=== PATIENT | male | born 1965 | race Caucasian/White ===

== ENCOUNTER 2018-08-22 18:20 | Inpatient (IN) | payer OTHER ==
[~2018-08-22] VITALS: Ht 177.8 cm; Wt 150.8 kg
[2018-08-22 18:21] VITALS: BP 159/91
[2018-08-22 18:34] LABS: ABSOLUTE NEUTROPHILS 6.3 thou/uL (1.4-8.2); BASOPHILS 0.7 % (0.0-2.0); EOSINOPHILS 1.4 % (0.0-3.0); HEMATOCRIT 43.6 % (42.0-52.0); HEMOGLOBIN 15.2 gm/dL (14.0-18.0); LYMPHOCYTES 29.5 % (24.0-44.0); MCH 29.9 pg (26.0-34.0); MCHC 34.8 g/dL (28.0-37.0); MCV 85.8 fL (80.0-100.0); MONOCYTES 3.9 % (1.0-8.0); PLATELET COUNT 341 thou/uL (150-400); POLYS 64.5 % (36.0-66.0); RBC 5.08 mil/uL (4.50-6.00); RDW 14.5 % (10.5-14.5); WBC 9.7 thou/uL (4.0-11.0)
[2018-08-22 18:37] LABS: ANION GAP 19 mmol/L (7-16); BUN 21 mg/dL (7-18); CALCIUM 10.3 mg/dL (8.5-10.1); CHLORIDE 102 mmol/L (98-107); CO2 21 mmol/L (21-32); CREATININE 2.1 mg/dL (0.7-1.3); GLUCOSE 184 mg/dL (74-106); SODIUM 142 mmol/L (136-145)
[2018-08-22 18:47] LABS: DIRECT BILIRUBIN < 0.1 mg/dL (<0.1-0.3); SGOT 50 U/L (15-37); SGPT 39 U/L (30-65); TOTAL BILIRUBIN 0.4 mg/dL (<0.1-1.0); TOTAL PROTEIN 8.1 g/dL (6.4-8.2); TROPONIN-I <0.06 ng/mL (<0.06)
[2018-08-22 18:48] LABS: APTT 25.3 Seconds (24.5-32.8)
[2018-08-22 20:59] VITALS: BP 140/79
[2018-08-22 21:32] VITALS: BP 147/79
[2018-08-22 22:13] VITALS: BP 146/67
--- NOTE | 2018-08-22 23:57 | NUR ---
PT ADMIT FROM ED WITH CHEST PAIN AND ELEVATED TROPONIN.A/OX4.ARRIVED TO UNIT VIA CART.PT WAS ABLE TO AMBULATE FROM THE DOOR TO BED WITH STEADY GAIT.PT ADMITTED ON FALLING AT WORK WITH THE EPISODE OF CHEST PAIN.VSS.PT EDUCATED ON HEART MONITORS MONITORING AND NEED TO CHECK ON THEM IN NEED BE TO MAKE SURE OUR PATIENTS ARE SAFE.PT VOICED UNDERSTANDING AND INAGREEMENT WITH THE PROCEDURE DEMONSTRATED VIA SIGNING PT'S SAFETY PAPERWORK,COPY GIVEN TO PT .DENIES ANY CONCERNS.POC REVIEWED WITH THE POC,INAGREEMENT WITH POC AND TX.ASSESSMENT COMPLETED DOCUMENTED.MEDS ACKNOWLEDGED.PAIN MEDS ADN ZOFRAN GIVEN D/T PT C/O CHEST TIGHTNESS/PRESSURE WITH NAUSEA.WILL CONT TO MONITOR PER POC.
[2018-08-23] VITALS (11 sets, daily range): BP systolic 126–176; BP diastolic 73–88
[2018-08-23 03:55] LABS: ANION GAP 9 mmol/L (7-16); BUN 22 mg/dL (7-18); CALCIUM 8.5 mg/dL (8.5-10.1); CHLORIDE 103 mmol/L (98-107); CHOLESTEROL 215 mg/dL (<200); CO2 27 mmol/L (21-32); CREATININE 1.3 mg/dL (0.7-1.3); GLUCOSE 102 mg/dL (74-106); HDL CHOLESTEROL 31 mg/dL (>40); LDL CHOLESTEROL 154 mg/dL (<100); POTASSIUM 3.3 mmol/L (3.5-5.1); SODIUM 139 mmol/L (136-145); TC:HDL 6.9 Ratio (Not establshd); TRIGLYCERIDE 154 mg/dL (<150); TROPONIN-I 0.06 ng/mL (<0.06); VLDL 31 mg/dL (<40)
[2018-08-23 03:59] LABS: SERUM ASSESSMENT Slight Lipemia
--- NOTE | 2018-08-23 09:36 | EKG ---
[address] [place] [address] ELECTROCARDIOGRAM REPORT Name: FANNIE ANTHONY Room #: 213-P ADM IN M.R.#: [id number] ������������������ Admission: 08/22/18 ������������������ Attend Phys: Eldon Rivera MD Discharge: ������������������ Date of : 69 Report #: [id number] ����������������������������������������������������������������� [id number] THIS REPORT FOR: //name// [facility] ED Test Date: 2018-08-22 Test Time: 18:25:37 Pat Name: FANNIE ANTHONY Department: Room: 213 Gender: M Anesthetic Assistant: CELESTINO : 1965 Requested By: Yvonne Patterson Order Number: [id number] MD: Walker Oliveira Measurements Intervals [place] Rate: 108 P: 32 MS: 176 QRS: -9 QRSD: 102 T: 32 QT: 353 QTc: 473 Interpretive Statements Sinus tachycardia Ventricular premature complex Nonspecific ST segment abnormalities No previous ECG available for comparison Electronically Signed On 08-23-2018 9:36:42 CDT by Walker Oliveira [email or web address] ��������������������������������������������� <ELECTRONICALLY SIGNED> ���������������������������������������� By: Walker Oliveira MD ��������������������������������������������� 08/23/18 0936 1825 1825 Walker Oliveira MD /RONAL
--- NOTE | 2018-08-23 09:39 | EKG ---
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 : 1965 Requested By: Dipti Nunes Order Number: [id number] MD: Walker Oliveira Measurements Intervals [place] Rate: 67 P: 33 WV: 171 QRS: -11 QRSD: 104 T: 41 QT: 447 QTc: 472 Interpretive Statements Sinus rhythm No previous ECG available for comparison Electronically Signed On 08-23-2018 9:39:19 CDT by Walker Oliveira [email or web address] ��������������������������������������������� <ELECTRONICALLY SIGNED> ���������������������������������������� By: Walker Oliveira MD ��������������������������������������������� 08/23/18 0939 0730 0730 Walker Oliveira MD /EPI
--- NOTE | 2018-08-23 12:19 | 2DMMODE ---
[facility] [address] [employer] [address] 2 D/M-MODE ECHOCARDIOGRAM Name: GABRIELLEFANNIE Bia Room #: 213-P [facility] IN ..#: [id number] ������������� Admission: 08/22/18 ������������� Attend Phys: Eldon Rivera MD Discharge: ��� ������������� ��� Date of : 69 Date of Service: 08/23/18 1219 �� Report #: [id number] �������� ��������������������������������������������[id number] THIS REPORT FOR: //name// APPROVED REPORT Study performed: 08/23/2018 10:13:00 EXAM: Comprehensive 2D, Doppler, and color-flow Echocardiogram Patient Location: Bedside Room #: 213 Status: routine BSA: 2.57 HR: 70 bpm BP: 168/88 mmHg Rhythm: NSR Other Information Study Quality: Adequate Indications CAD Elevated Troponin Chest Pain Hypertension/HDD Morbid Obesity 2D Dimensions IVC: 25.00 mm Volumes Left Atrial Volume (Systole) Single Plane 4CH: 91.61 mL Single Plane 2CH: 80.48 mL LA ESV Index: 36.00 mL/m2 Aortic Valve AoV Peak Amando.: 1.70 m/s AO Peak Gr.: 11.59 mmHg LVOT Max P.70 mmHg LVOT Max V: 1.29 m/s Mitral Valve E/A Ratio: 1.1 MV Decel. Time: 265.66 ms MV E Max Amando.: 0.98 m/s MV A Amando.: 0.90 m/s MV PHT: 77.04 ms [facility] [address] [place] [address] 2 D/M-MODE ECHOCARDIOGRAM Name: FANNIE ANTHONY Room #: 213-P ADM IN M.R.#: [id number] ������������� Admission: 08/22/18 ������������� Attend Phys: Eldon Rivera MD Discharge: ��� ������������� ��� Date of : 69 Date of Service: 08/23/18 1219 �� Report #: [id number] �������� ��������������������������������������������[id number] IVRT: 124.57 ms Pulmonary Valve PV Peak Amando.: 0.96 m/s PV Peak Gr.: 3.66 mmHg Pulmonary Vein P Vein S: 0.71 m/s P Vein A: 0.25 m/s P Vein D: 0.50 m/s P Vein A Dur.: 133.8 msec P Vein S/D Ratio: 1.42 Left Ventricle The left ventricle is normal size. There is normal LV segmental wall motion. Borderline concentric left ventricular hypertrophy. The left ventricular systolic function is normal. The left ventricular ejection fraction is within the normal range. LVEF is 60-65%. Grade II - pseudonormal filling dynamics. Right Ventricle The right ventricle is normal size. The right ventricular systolic function is normal. Atria Left atrium is dilated. The right atrium size is normal. Aortic Valve The aortic valve is normal in structure. No aortic regurgitation is present. There is no aortic valvular stenosis. Mitral Valve The mitral valve is normal in structure. There is no mitral valve regurgitation noted. No evidence of mitral valve stenosis. Tricuspid Valve The tricuspid valve is normal in structure. There is no tricuspid valve regurgitation noted. Pulmonic Valve The pulmonary valve is normal in structure. There is no pulmonic valvular regurgitation. Great Vessels The aortic root is normal in size. IVC is dilated and collapses >50% with inspiration. Pericardium There is no pericardial effusion. [facility] [address] [place] [address] 2 D/M-MODE ECHOCARDIOGRAM Name: FANNIE ANTHONY Room #: 213-P [facility] IN ..#: [id number] ������������� Admission: 08/22/18 ������������� Attend Phys: Eldon Rivera MD Discharge: ��� ������������� ��� Date of : 69 Date of Service: 08/23/18 1219 �� Report #: [id number] �������� ��������������������������������������������[id number] <Conclusion> The left ventricle is normal size. LVEF is 60-65%. Left atrium is dilated. The aortic valve is normal in structure. The mitral valve is normal in structure. The tricuspid valve is normal in structure. The pulmonary valve is normal in structure. There is no pericardial effusion. ��������������������������������������������� <ELECTRONICALLY SIGNED> ���������������������������������������� By: Zenon Santos MD ��������������������������������������������� 08/23/18 1219 121 1219 Zenon Santos MD /INF
[2018-08-23 15:10] LABS: GLYCOHEMOGLOBIN (HGB A1C) 5.4 % (4.8-5.6)
--- NOTE | 2018-08-23 19:26 | NUR ---
1815 - PT TO ROOM 247 PER MOVER STAFF - REPORT RECEIVED FROM ALLY KAPADIA - PT A/O X4 - DENIES CP - VSS - RIGHT GROIN /C ARTERIAL LINE DRY/INTACT/SOFT - PT INSTRUCTED ON NEED TO KEEP LEG STRAIGHT - COMPLAINS OF HEADACHE DR. CHANG AT BEDSIDE AND STATES TO WEAN OFF NITRO DRIP - ASSESSMENT COMPLETE - REPORT GIVEN TO ALLY YANES AT END OF SHIFT
--- NOTE | 2018-08-23 23:51 | NUR ---
ASSUMED CARE OF PT AT 1900. PT ALERT AND ORIENTED X4. SR ON THE MONITOR. RIGHT GROIN ARTERIAL SHEATH IN PLACE. ANGIOMAX GTT ENDED AT 1930. ARTERIAL SHEATH PULLED AT 2150. PRESSURE HELD FOR 25 MIN. HEMOSTASIS ACHIEVED AT 2215. GAUZE AND TRASPARENT DRESSING PLACED. PT SR ON THE MONITOR. BP ELEVATED. PM BP MEDS GIVEN WITH IMPROVEMENT. PT C/O VELEZ AND LEFT HIP PAIN. WILL CONTINUE TO MONITOR PT.
[2018-08-24] VITALS (19 sets, daily range): BP systolic 112–165; BP diastolic 56–93
[2018-08-24 06:54] LABS: HEMATOCRIT 35.3 % (42.0-52.0); MCH 29.6 pg (26.0-34.0); MCHC 33.9 g/dL (28.0-37.0); MCV 87.4 fL (80.0-100.0); RBC 4.04 mil/uL (4.50-6.00); RDW 14.6 % (10.5-14.5)
[2018-08-24 06:56] LABS: CALCIUM 8.2 mg/dL (8.5-10.1); POTASSIUM 3.8 mmol/L (3.5-5.1)
--- NOTE | 2018-08-24 09:49 | NUR ---
Assess due to high BMI 47.3=extreme class III obesity. Hx CAD and admitted for chest pain, required DANELLE. Tolerating diet well. See RD education note for diet education. Low nutrition risk
--- NOTE | 2018-08-24 13:39 | NUR ---
INITIAL ASSESSMENT: SW reviewed chart and spoke with nursing and attending physician. Pt was admitted from home due to chest pain. Pt is s/p cath and is progressing towards goals for discharge. Discharge home is anticipated for tomorrow. SW met with pt at bedside. Introduced role of SW. Pt is alert/orientated x 4. Pt sitting up in chair during time of SW visit. Pt reports he lives at home alone. Prior to admission, pt was independent with ADLs. Pt is employed and was at work when chest pain started. No hx of services or SNF/Rehab placement. Pt does not have a PCP, and states he will follow up with the tandem mill sticker here at [facility] after discharge. Pt will have transportation home tomorrow when discharged. No SW discharge needs identified at this time, but is available to assist should needs arise.
--- NOTE | 2018-08-24 18:04 | NUR ---
assumed care of pt at 0700, pt is a GCS 15, c/o pain mostly to left hip but denies chest pain. vss, SR/SB on the monitor, pt has been afibrile. orders recieved to transferr pt out of ICU. report called to accepting nurse. family notified.
--- NOTE | 2018-08-24 18:22 | NUR ---
PT TRANSFERED TO THE UNIT FROM THE ICU - ORIENTED TO ROOM AND BEDSPACE - RAHEL DIET AND FLUIDS. NO CO'S OF NAUSEA. PT WITH GENERALIZED EDEMA - 2+ IN HANDS AND FEET. SR ON THE MONITOR. ALET AND ORIENTED. NO CO'S AT THE PRESENT TIME.
--- NOTE | 2018-08-24 21:42 | CATHLAB ---
[facility] [address] [place] [address] INVASIVE PROCEDURE REPORT Name: FANNIE ANTHONY Room #: [facility] ..#: [id number] ������������� Admission: 08/22/18 ������������� Attend Phys: Eldon Rivera MD Discharge: ��� ������������� ��� Date of : 69 Date of Service: 08/24/182141 �� Report #: [id number] �������� ��������������������������������������������[id number] THIS REPORT FOR: //name// APPROVED REPORT Study performed: 08/23/2018 16:01:33 Patient Details Patient Status: In-Patient Room #: The patient is a 52 year-old male Event Personnel Zenon Santos Eligibility Services Representative, Latia Davies RN, Jc Chacon Monitor, Cornel Greco RTR RikkiubAilyn Wes senior microsoft net developer Performed Art Access - R femoral artery* Left Heart Cath w/or w/o Coronaries [id number] [facility] DANELLE Place w/wo Plasty Single RCA [id number] 33146 Initial Mod Sed Same Phys/QHP Gr5y 648503 71839 Mod Sed Same Phys/QHP Ea 711486, supervision of conscious sedation Indication Non-STEMI (>12 hrs to = 24 hrs), Chest pain Procedure Narrative The Right Groin^ was infiltrated with 1% Lidocaine subcutaneous anesthesia. A PINNACLE 4FR Sheath #[id number] sheath was inserted into the RFA^. Coronary angiography was performed using coronary diagnostic catheters. The right coronary system was accessed and visualized with a JR4 catheter. The left coronary system was accessed and visualized with a JL4 catheter. The left ventricle was accessed and visualized with a ANGLE PIG catheter. SHEATH WAS SUTTURED INTO RT GROIN. Intraoperative Conscious Sedation Sedation start time: 1614 Case end Time: 1743 Versed 2 mg MORPHINE 4MG Fluoro Time: 20.41 minutes Dose: DAP 11065.00 cGycm2 4452 mGy Contrast Type and Amount: Omnipaque 250 ml [facility] [place] [address] INVASIVE PROCEDURE REPORT Name: FANNIE ANTHONY Room #: 201[facility] ..#: [id number] ������������� Admission: 08/22/18 ������������� Attend Phys: Eldon Rivera MD Discharge: ��� ������������� ��� Date of : 69 Date of Service: 08/24/182141 �� Report #: [id number] �������� ��������������������������������������������[id number] Coronary Angiography The patient's coronary anatomy is right dominant. Diagnostic Cath Left Main large caliber of normal origin bifurcates into LAD and LCX mild nonobstructive lesion noted. LAD small caliber type II vessel with eccentric 40% lesion proximally. it then continues in the anterior interventricular sulcus where ther is a 30-40% lesion in the distal third Diagonal 1 Small caliber vessel with luminal irregularities but no high-grade lesions present Circumflex Large-caliber vessel is resting very early first marginal branch. This first marginal branch is moderate to large in caliber and has a eccentric 75% lesion in its midportion. Then continues along the lateral aspect of the heart the circumflex continues on giving rise to a small posterior wall branches without significant high-grade lesions OM1 Rectal large-caliber vessel coursing on the lateral last of the left ventricle with a St. 5% eccentric lesion in its midportion. Then continues and terminates as a bifurcating vessel without high-grade lesion but the presence of luminal irregularities are noted. Right Coronary Large caliber dominant vessel which is ectatic in its proximal portion of the proximal segment. It then has a high-grade eccentric lesion of greater than 90%. The vessel then continues as a angulation as it courses in the anterior interventricular sulcus giving rise to small RV marginal branch for the vessel continues posteriorly where it gives rise to posterior descending artery at the crux of the heart and posterior lateral branch all of which are at least moderate in size R PDA small to moderate caliber long in length with luminal irregularities noted reaching the apex of the heart. RPLV Small to moderate caliber vessel with luminal irregularities noted coursing towards the apex and the posterolateral aspect of the left ventricle Left Ventriculography Left Ventriculography was not performed. Hemodynamics The aortic pressure is 167/102 mmHg with a mean of 134 mmHg. PCI Technique The right coronary artery lesion was noted to be the culprit more than likely since there was some haziness at the stenotic region. The angulation was not best amenable to percutaneous revascularization. The patient did not wish to undergo aortocoronary bypass grafting. In [facility] [address] [place] [address] INVASIVE PROCEDURE REPORT Name: FANNIE ANTHONY Room #: 201-P ADM IN M.R.#: [id number] ������������� Admission: 08/22/18 ������������� Attend Phys: Eldon Rivera MD Discharge: ��� ������������� ��� Date of : 69 Date of Service: 08/24/18 2142 �� Report #: [id number] �������� ��������������������������������������������[id number] view of this we decided to proceed with attempted PCI. Prior to the initiation I contacted thoracic surgery to have them in-house available in case of an adverse event. A standard Miriam right 4 curved guiding catheter was engaged and right coronary ostium. A 0.014 wire was then advanced distally without difficulty and a 4.0 mm x 12-lead meter balloon was positioned and inflated to nominal pressures. The 4 mm balloon seen significantly undersize. The balloon was removed and the lesion was improved in diameter but noticeable supposedly had more haziness at the stenotic region. symptoms worsened and review of the right coronary demonstrated the development of a spiral dissection plane. Immediately a 5 mm x 12 mm DANELLE stent was positioned and deployed to 16 tyler at the previous the dilated site with the beginning of the spiral dissection. This did not cover the entire dissection plane and a second 5 mm x 15 mm DANELLE stent was positioned proximally and deployed at 16 tyler. This completely cover the dissection plane and flow was reestablished. symptoms improved although the distal portion of the stent did not seem to be fully deployed to appropriate sizing. A 5 mm noncompliant balloon was then advanced and positioned distally and inflated to 5.5 mm diameter. The stent looked much improved with apparently well deployed. Nicardipine 200 �g aliquots �4 were utilized to improve distal flow. Some sluggish flow was noted in the PDA. The patient remained electrically stable throughout the entire procedure. Flow improved with brisk flow being reestablished and the dissection plane completely covered without evidence of dissection. The vessel was observed for several minutes without any development of new dissections or sluggish flow. Patient's symptoms subsided and were much improved. She states her son in place. Effient was given. IV nitroglycerin was initiated for elevated blood pressure and chest discomfort. Patient was transported to the ICU for further care and monitoring. PCI Technique Lesion Percutaneous coronary intervention was performed on the mid right coronary artery. A LAUNCHER 6FR JR 4 #[id number] Guide Catheter was used to engage the RCA ostium. A Luge Wire .014 x 182CM #[id number] Interventional Guidewire was used to cross the lesion. BALLOON DILATION A Balloon catheter Sprinter OTW 4.0 x 12 #[id number] was inserted and inflated up to 3atm for 6seconds. Additional Inflation: 3atm for 20seconds. Additional Inflation: 4atm for 28seconds. 8 TYLER FOR 45 SECS. STENT DEPLOYMENT A drug-eluting stent RESOLUTE KALIA RX 5.0 X 15 #[id number] was inserted [facility] [place] [address] INVASIVE PROCEDURE REPORT Name: FANNIE ANTHONY Room #: 201[facility] ..#: [id number] ������������� Admission: 08/22/18 ������������� Attend Phys: Eldon Rivera MD Discharge: ��� ������������� ��� Date of : 69 Date of Service: 08/24/18 2142 �� Report #: [id number] �������� ��������������������������������������������[id number] and inflated up to 14atm for 10seconds. A RESOLUTE KALIA RX 5X18 PLACED IN THE RCA DEPLOYED AT 14ATM FOR 8 SECS. POST STENT DEPLOYMENT BALLOON DILATION A Balloon catheter Euphora NC RX 5.0 x 15 #[id number] was inserted and inflated up to 12atm for 16seconds. Additional Inflation: 20atm for 17seconds. Conclusion 1. Coronary disease, severe, two-vessel 2. Abnormal hemodynamics with elevated liver ventricular end-diastolic pressures 3. PCI of the proximal right coronary artery complicated by spiral dissection successfully treated with 5.0 x 12 and 5.0 x 15 mm DANELLE stents deployed to 16-18 tyler Recommendations Cardiac Risk Reduction Program Weight Loss Reduction Program Medications Administered Prasugrel Cardiac Rehabilitation Referral ��������������������������������������������� <ELECTRONICALLY SIGNED> ���������������������������������������� By: Zenon Santos MD ��������������������������������������������� 08/24/182141 41 41 Zenon Santos MD /INF
[2018-08-25 00:30] VITALS: BP 129/72
[2018-08-25 04:00] VITALS: BP 152/88
--- NOTE | 2018-08-25 05:30 | NUR ---
ASSUME CARE 1900. PT/VITALS STABLE. INTERMITTENT LEFT LEG PAIN. MORPHINE FOR RELIEF. UP AD RAMYA TO BATHROOM. PT LIMPING DUE TO LEFT LEG PAIN. ASSESSMENT CHARTED. PROGRESSING WELL WITH POC. SR NOTED ON MONITOR. RIGHT GROIN SITE INTACT WITH NO SWELLING OR HEMATOMA NOTED. PLAN IS A POSSIBLE DISCHARGE WITHIN 1-2 DAYS. WILL CONTINUE TO MONITOR AND FOLLOW WITH POC
[2018-08-25 07:34] VITALS: BP 154/83
[2018-08-25] MEDS ORDERED: CRESTOR20 MG PO (08:20)
[2018-08-25] MEDS ORDERED: ALTACE5 MG PO (08:20)
[2018-08-25] MEDS ORDERED: NITROGLYCERIN0.4 MG SUBLING (08:20)
[2018-08-25] MEDS ORDERED: EFFIENT10 MG PO (08:20)
[2018-08-25] MEDS ORDERED: ASPIRIN325 PO (08:20)
[2018-08-25] MEDS ORDERED: METOPROLOL SUCC50 MG PO (08:20)
[2018-08-25 10:28] VITALS: BP 154/83
--- NOTE | 2018-08-25 10:42 | NUR ---
BEING DISCHARGED TODAY. DISCHARGE INSTRUCTIONS, PRESCRIPTIONS GIVEN. WILL CONTINUE TO FOLLOW.
[2018-08-25 10:44] VITALS: BP 154/83
== END 2018-08-25 14:16 | disposition home or self-care (01) | DRG 247 ==
LOC: ER 18:20 → EROBS 20:43 → 2N 20:43 → ICU 08-23 18:30 → 2N 08-24 17:43 → ENTRNSPT 08-25 14:07 → EDTRNSPTSTS 08-25 14:09 → 2N 08-25 14:16
PROVIDERS: Emergency Medicine; Nurse Practitioner Family; ADMIT Hospitalist
PROC: 4A023N7 Measurement of Cardiac Sampling and Pressure, Left Heart, Percutaneous Approach (ICD-10-PCS; principal; 2018-08-23)
PROC: 027035Z Dilation of Coronary Artery, One Artery with Two Drug-eluting Intraluminal Devices, Percutaneous Approach (ICD-10-PCS; principal; 2018-08-23)
PROC: B2111ZZ Fluoroscopy of Multiple Coronary Arteries using Low Osmolar Contrast (ICD-10-PCS; principal; 2018-08-23)
DX: I21.4 Non-ST elevation (NSTEMI) myocardial infarction (principal); Z68.42 Body mass index [BMI] 45.0-49.9, adult; N17.9 Acute kidney failure, unspecified; I25.10 Atherosclerotic heart disease of native coronary artery without angina pectoris; E78.5 Hyperlipidemia, unspecified; E66.01 Morbid (severe) obesity due to excess calories; E87.6 Hypokalemia; M16.12 Unilateral primary osteoarthritis, left hip; Z98.61 Coronary angioplasty status; I25.2 Old myocardial infarction; Z87.828 Personal history of other (healed) physical injury and trauma; Z87.81 Personal history of (healed) traumatic fracture; Z79.899 Other long term (current) drug therapy; Z88.2 Allergy status to sulfonamides; Z82.49 Family history of ischemic heart disease and other diseases of the circulatory system
CPT/HCPCS: 10078; 10081

== ENCOUNTER 2018-11-20 20:12 | Inpatient (IN) | payer OTHER ==
[~2018-11-20] VITALS: Ht 177.8 cm; Wt 145.6 kg
--- NOTE | ~2018-11-20 | D ---
[facility] [place] [address] DISCHARGE SUMMARY Name: FANNIE ANTHONY Room #: 200-I ADM IN M.R.#: [id number] Admission: 11/20/18 Attend Phys: Francisco Ching MD Discharge: Date of : 69 Report #: [id number] THIS REPORT FOR: //name// CC: JERRY physician/PCP Francisco Ching DATE OF SERVICE: 11/23/2018 DISCHARGE MEDICATIONS: Home meds with the following changes: isosorbide mononitrate 120 mg q.a.m., losartan 25 mg p.o. daily at 6:00 p.m. Home medications have been prasugrel 10 mg daily, sublingual nitroglycerin p.r.n., metoprolol succinate 50 mg daily, aspirin 325 daily, and simvastatin 20 mg daily. FOLLOWUP: Dr. aSntos in 2 weeks. DISCHARGE DIET: [place] [employer] step 1 diet, salt restricted. ACTIVITY: Return to regular home activity with checking blood pressures and calling if greater than 130 systolic or 80 diastolic. BRIEF CLINICAL HISTORY: See history and physical in chart. HOSPITAL COURSE: The patient was admitted to the hospital, ruled out for myocardial infarction, but underwent cardiac catheterization demonstrated a patent stenting. He had a moderate left circumflex lesion that underwent IFR, which was not significant. He had a subtotal small marginal branch with slow filling and less than 0.5 mm in diameter, which was thought to be the culprit. His medications are optimized. He is allowed to ambulate and he is discharged to home in stable condition to follow up with the previously stated discharge instructions and medications. By: 1216 1329 Zenon Santos MD /nt
[~2018-11-20 20:12] MED LIST: ALTACE5 MG PO; ASPIRIN325 PO; CRESTOR20 MG PO; EFFIENT10 MG PO; METOPROLOL SUCC50 MG PO; NITROGLYCERIN0.4 MG SUBLING
[2018-11-20 21:00] VITALS: BP 143/83
[2018-11-20] MEDS ORDERED: IMDUR 60 MG TAB60 M1 PO (21:04)
[2018-11-20] MEDS ORDERED: [UNRECOGNIZED DRUG - REMARK] PO (21:09)
[2018-11-20] MEDS ORDERED: [UNRECOGNIZED DRUG - REMARK] PO (21:10)
[2018-11-20] MEDS ORDERED: CRESTOR20 MG PO (21:16)
[2018-11-20 23:45] LABS: HEMATOCRIT 39.4 % (42.0-52.0); MCH 28.9 pg (26.0-34.0); MCHC 33.1 g/dL (28.0-37.0); MCV 87.4 fL (80.0-100.0); RBC 4.51 mil/uL (4.50-6.00); RDW 14.6 % (10.5-14.5); WBC 8.6 thou/uL (4.0-11.0)
[2018-11-20 23:54] LABS: ANION GAP 10 mmol/L (7-16); BUN 19 mg/dL (7-18); CALCIUM 9.4 mg/dL (8.5-10.1); CHLORIDE 105 mmol/L (98-107); CO2 25 mmol/L (21-32); CREATININE 1.3 mg/dL (0.7-1.3); GLUCOSE 114 mg/dL (74-106); POTASSIUM 3.8 mmol/L (3.5-5.1); SODIUM 140 mmol/L (136-145)
[2018-11-21] VITALS (8 sets, daily range): BP systolic 119–140; BP diastolic 72–92
[2018-11-21 00:05] LABS: ALBUMIN 3.5 g/dL (3.4-5.0); SGOT 15 U/L (15-37); SGPT 25 U/L (30-65); TOTAL BILIRUBIN 0.2 mg/dL (<0.1-1.0); TOTAL PROTEIN 7.2 g/dL (6.4-8.2); TROPONIN-I <0.06 ng/mL (<0.06)
[2018-11-21 06:22] LABS: HEMATOCRIT 37.7 % (42.0-52.0); HEMOGLOBIN 12.8 gm/dL (14.0-18.0); MCH 29.7 pg (26.0-34.0); MCV 87.5 fL (80.0-100.0); RBC 4.31 mil/uL (4.50-6.00); RDW 14.7 % (10.5-14.5); WBC 7.7 thou/uL (4.0-11.0)
[2018-11-21 06:57] LABS: ANION GAP 7 mmol/L (7-16); BUN 19 mg/dL (7-18); CALCIUM 8.6 mg/dL (8.5-10.1); CHLORIDE 106 mmol/L (98-107); CO2 24 mmol/L (21-32); CREATININE 1.2 mg/dL (0.7-1.3); GLUCOSE 119 mg/dL (74-106); POTASSIUM 3.6 mmol/L (3.5-5.1); SODIUM 137 mmol/L (136-145); TROPONIN-I <0.06 ng/mL (<0.06)
[2018-11-21 07:58] LABS: URINE BILIRUBIN NEGATIVE (Negative); URINE BLOOD NEGATIVE (Negative); URINE CLARITY CLEAR; URINE COLOR YELLOW; URINE GLUCOSE-RANDOM* NEGATIVE (Negative); URINE KETONES NEGATIVE (Negative); URINE LEUKOCYTES-REFLEX NEGATIVE (Negative); URINE NITRITE-REFLEX NEGATIVE (Negative); URINE PROTEIN (DIPSTICK) NEGATIVE (Negative); URINE SPECIFIC GRAVITY 1.015 (1.005-1.035); URINE UROBILINOGEN 0.2 E.U./dl (0.2-1.0)
--- NOTE | 2018-11-21 17:26 | EKG ---
[place] [address] [address] [facility] [place] [address] ELECTROCARDIOGRAM REPORT Name: FANNIE ANTHONY Room #: 200-I ADM IN M.R.#: [id number] Admission: 11/20/18 Attend Phys: Francisco Ching MD Discharge: Date of : 69 Report #: [id number] THIS REPORT FOR: //name// [facility] Test Date: 2018-11-20 Test Time: 23:49:43 Pat Name: FANNIE ANTHONY Department: Room: 200 I Gender: M Certified Teacher Assistant: marcie coelho rn : 1965 Requested By: Walker Oliveira Order Number: [id number] MD: Gal Nelson Measurements Intervals [place] Rate: 58 P: 37 UT: 182 QRS: 14 QRSD: 101 T: 32 QT: 460 QTc: 452 Interpretive Statements Sinus bradycardia Otherwise normal tracing Compared to ECG 08/23/2018 07:30:20 No significant changes Electronically Signed On 11-21-2018 17:26:03 CDT by Gal Nelson [email or web address] <ELECTRONICALLY SIGNED> By: Gal Nelson MD, [facility] 11/21/18 1726 D: 08/2348 48 Gal Nelson MD, FACC /EPI
--- NOTE | 2018-11-21 17:29 | EKG ---
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
[2018-11-22 04:00] VITALS: BP 122/73
[2018-11-22 06:06] LABS: HEMATOCRIT 35.2 % (42.0-52.0); HEMOGLOBIN 11.8 gm/dL (14.0-18.0); MCH 29.5 pg (26.0-34.0); MCHC 33.5 g/dL (28.0-37.0); MCV 88.1 fL (80.0-100.0); RDW 14.7 % (10.5-14.5); WBC 6.7 thou/uL (4.0-11.0)
[2018-11-22 07:42] VITALS: BP 132/81
--- NOTE | 2018-11-22 10:14 | 2DMMODE ---
[facility] [address] [address] 2 D/M-MODE ECHOCARDIOGRAM Name: FANNIE ANTHONY Room #: 200-I ADM IN [facility]#: [id number] Admission: 11/20/18 Attend Phys: Francisco Ching, Discharge: Date of : 69 Date of Service: 11/22/18 1014 Report #: [id number] THIS REPORT FOR: //name// APPROVED REPORT Study performed: 11/22/2018 09:45:27 EXAM: Comprehensive 2D, Doppler, and color-flow Echocardiogram Patient Location: In-Patient Room #: 200 Status: routine BSA: 2.28 HR: 62 bpm Rhythm: NSR Other Information Study Quality: Fair Indications Assess Ejection Fraction Left Ventricle The left ventricle is normal size. There is normal left ventricular wall thickness. The left ventricular systolic function is normal. The left ventricular ejection fraction is within the normal range. LVEF is 55-60%. Right Ventricle The right ventricle is normal size. Atria The left atrium size is normal. The right atrium size is normal. Aortic Valve The aortic valve is normal in structure. No aortic regurgitation is present. There is no aortic valvular stenosis. Mitral Valve The mitral valve is normal in structure. Trace mitral regurgitation. No evidence of mitral valve stenosis. Tricuspid Valve The tricuspid valve is normal in structure. Mild tricuspid [facility] [address] [place] [address] 2 D/M-MODE ECHOCARDIOGRAM Name: FANNIE ANTHONY Room #: 200-I ADM IN [facility].R.#: [id number] Admission: 11/20/18 Attend Phys: Francisco Ching, Discharge: Date of : 69 Date of Service: 11/22/18 1014 Report #: [id number] regurgitation. Pulmonic Valve Pulmonic valve is not well visualized. Great Vessels IVC is normal in size and collapses >50% with inspiration. Pericardium There is no pericardial effusion. <Conclusion> The left ventricle is normal size. LVEF is 55-60%. The aortic valve is normal in structure. The mitral valve is normal in structure. Trace mitral regurgitation. The tricuspid valve is normal in structure. Mild tricuspid regurgitation. Pulmonic valve is not well visualized. There is no pericardial effusion. <ELECTRONICALLY SIGNED> By: Zenon Santos MD 11/22/18 1014 1014 1014 Zenon Santos MD /INF
[2018-11-22 12:27] VITALS: BP 143/74
[2018-11-22 15:18] VITALS: BP 137/86
[2018-11-22 19:28] VITALS: BP 138/87
[2018-11-23 04:51] VITALS: BP 122/65
[2018-11-23] MEDS ORDERED: COZAAR 25 MG TA25 M1 PO (09:03)
[2018-11-23] MEDS ORDERED: IMDUR 60 MG TAB60 M1 PO (09:03)
[2018-11-23 09:13] VITALS: BP 152/96
[2018-11-23 10:16] LABS: CALCIUM 8.5 mg/dL (8.5-10.1); CREATININE 1.1 mg/dL (0.7-1.3); POTASSIUM 3.7 mmol/L (3.5-5.1)
[2018-11-23 12:25] VITALS: BP 132/82
[2018-11-23 13:19] VITALS: BP 132/82
--- NOTE | 2018-11-23 14:58 | CATHLAB ---
[facility] [employer] [place] [address] INVASIVE PROCEDURE REPORT Name: FANNIE ANTHONY Room #: 200-I [facility] IN [facility]#: [id number] Admission: 11/20/18 Attend Phys: Francisco Ching, Discharge: 11/23/18 Date of : 69 Date of Service: 11/23/18 1457 Report #: [id number] THIS REPORT FOR: //name// APPROVED REPORT Study performed: 11/21/2018 11:08:05 Patient Details Patient Status: Out-Patient Room #: The patient is a 52 year-old male Event Personnel Zenon Santos Hat Lining Blocker, Maurizio Robertson RN, Carlos Olivas, Parth Greco RTR Scrub Procedures Performed Left Heart Cath w/or w/o Coronaries [id number] [facility] FFR [id number] FFR, supervision of conscious sedation Indication Chest pain Risk Factors Obesity, Hypercholesterolemia, Coronary Artery DiseaseHypertension Procedure Narrative The Right Groin^ was infiltrated with 1% Lidocaine subcutaneous anesthesia. A 6FR sheath was inserted into the RFA^. Coronary angiography was performed using coronary diagnostic catheters. The right coronary system was accessed and visualized with a JR4 catheter. The left coronary system was accessed and visualized with a JL5 catheter. Left ventricular/Aortic Valve gradient assessed via catheter pullback. Closure device was deployed with a 6 Fr MYNX. The patient tolerated the procedure well and there were no complications associated with the procedure. There was no hematoma. Intraoperative Conscious Sedation Sedation start time: 11:25 Case end Time: 12:05 Fluoro Time: 6.1 minutes Dose: DAP 08109 cGycm2 2597 mGy Contrast Type and Amount: Omnipaque 35 ml [facility] [address] [place] [address] INVASIVE PROCEDURE REPORT Name: FANNIE ANTHONY Room #: 200-I [facility].#: [id number] Admission: 11/20/18 Attend Phys: Francisco Ching, Discharge: 11/23/18 Date of : 69 Date of Service: 11/23/18 1457 Report #: [id number] Coronary Angiography The patient's coronary anatomy is right dominant. Diagnostic Cath Left Main Large-caliber vessel of normal origin bifurcates left anterior descending left circumflex free of high-grade disease. LAD Moderate caliber type III vessel which courses in the anterior interventricular sulcus. At the site of the proximal portion there is an eccentric lesion that it's less than 40%. It does not appear to be flow-limiting. It then continues on in the AV groove giving rise to diagonal branches which have some moderate to significant lesions but are all less than 1 mm in diameter. The LAD proper continues to the apex tapering and having luminal irregularities as it terminates in the posterior aspect of the left ventricular apex Diagonal 1 Small-caliber vessel with proximal diffuse disease which is greater than 60% but the vessel is less than 1 mm in diameter Circumflex At the large-caliber vessel which courses in the AV groove posteriorly giving rise to a small less than 1 mm marginal branch which is subtotally occluded and filling slowly antegrade with some distal retrograde filling from right coronary vessel. It gives rise to a large first marginal branch has an eccentric lesion appears to be no more than 60-70% and nonflow limiting prior to bifurcating. The vessel continues on to the apex with his small caliber branches that have tight lesions but are less than 1 mm in diameter OM1 Large-caliber vessel which courses in the lateral aspect of the heart. In the proximal third is a and with a lesion that appears to be 60-70%. It then continues on bifurcating and becoming small terminal branches with lesions as described above. This eccentric lesion underwent IFR are noted in the chart which were not significant Right Coronary Large-caliber vessel of normal origin has a widely patent stent in its proximal portion. Then tapers rapidly prior to reaching the acute margin area of moderate size RV marginal branch arises free of high-grade disease. The RCA then continues to the crux of the heart where he gives rise to a moderate caliber posterior descending artery that has a lesion in its mid course where the vessel is under 1 mm in diameter. The RCA continues giving rise to posterior lateral branch has a long segment of tortuosity in the proximal third which appears to have a maximal stenosis of 65-70%. It does not appear to be flow-limiting with injections R PDA Moderate caliber vessel which has a mid portion lesion which appears to be less than 50% stenosis and could also be associated with some bridging no flow-limiting lesions are [facility] [address] [place] [address] INVASIVE PROCEDURE REPORT Name: FANNIE ANTHONY Room #: 200-I DIS IN M.R.#: [id number] Admission: 11/20/18 Attend Phys: Francisco Ching, Discharge: 11/23/18 Date of : 69 Date of Service: 11/23/18 1457 Report #: [id number] noted IVUS Fractional Flow [place] was performed on the left circumflex vessel. A at chronic JL5 Guide Catheter was used to engage the left coronary ostium. A 0.014 fractional flow reserve Interventional Guidewire was used. A FFR wire was used. IVUS Findings 1. IFR demonstrated lowest achievable value 0.970.98 Hemodynamics The aortic pressure is 145/92 mmHg with a mean of 80 mmHg. The left ventricular pressure is 140/10 mmHg with a mean of mmHg. The left ventricular end diastolic pressure is 23 mmHg. There was no gradient across the aortic valve upon pullback. Pullback from the left ventricle to the aorta revealed no gradient across the aortic valve. PCI Technique Lesion A POWER DRIVEN BRUSH MAKER PACK III LF-#[id number] Guide Catheter was used to engage the FR JL5 ostium. A FFR Interventional Guidewire was used to cross the lesion. BALLOON DILATION PRE/1.0 POST .97 PCI Technique Lesion The lesion stenosis prior to intervention was left circumflex% with SHIRA at chronic JL5 flow. A left coronary Guide Catheter was used to engage the 0.014 fractional flow reserve ostium. A FFR wire Interventional Guidewire was used to cross the lesion. BALLOON DILATION A Balloon catheter 1. IFR demonstrated lowest achievable value 0.970.98 was inserted and inflated up to tyler for seconds. Conclusion 1. Coronary artery disease involving a subtotal small first marginal branch, several at least moderate lesions in small non-intervene able vessels as well as a posterolateral branch, and a patent stent to the RCA a proximally 2. Abnormal uterine dynamics with elevated left ventricular end-diastolic pressure [facility] [address] [place] [address] INVASIVE PROCEDURE REPORT Name: FANNIE ANTHONY Room #: 200-I DIS IN M.R.#: [id number] Admission: 11/20/18 Attend Phys: Francisco Ching, Discharge: 11/23/18 Date of : 69 Date of Service: 11/23/18 1457 Report #: [id number] Recommendations Cardiac Risk Reduction Program Aggressive Medical Therapy <ELECTRONICALLY SIGNED> By: Zenon Santos MD 11/23/18 1457 56 Zenon Santos MD /INF
== END 2018-11-23 13:47 | disposition home or self-care (01) | DRG 287 ==
LOC: 2N 20:12 → ENTRNSPT 11-23 13:24 → EDTRNSPTSTS 11-23 13:25 → 2N 11-23 13:47
PROVIDERS: Internal Medicine; Internal Medicine Cardiovascular Disease; Nurse Practitioner Adult Health; Nurse Practitioner Family; ADMIT Internal Medicine
PROC: B2111ZZ Fluoroscopy of Multiple Coronary Arteries using Low Osmolar Contrast (ICD-10-PCS; principal; 2018-11-21)
PROC: 4A023N7 Measurement of Cardiac Sampling and Pressure, Left Heart, Percutaneous Approach (ICD-10-PCS; principal; 2018-11-21)
PROC: 4A033BC Measurement of Arterial Pressure, Coronary, Percutaneous Approach (ICD-10-PCS; principal; 2018-11-21)
DX: I25.110 Atherosclerotic heart disease of native coronary artery with unstable angina pectoris (principal); N17.9 Acute kidney failure, unspecified; I10 Essential (primary) hypertension; E78.5 Hyperlipidemia, unspecified; M16.12 Unilateral primary osteoarthritis, left hip; E66.01 Morbid (severe) obesity due to excess calories; Z88.0 Allergy status to penicillin; Z79.82 Long term (current) use of aspirin; Z68.42 Body mass index [BMI] 45.0-49.9, adult; Z88.8 Allergy status to other drugs, medicaments and biological substances; Z95.5 Presence of coronary angioplasty implant and graft; Z82.49 Family history of ischemic heart disease and other diseases of the circulatory system; Z87.81 Personal history of (healed) traumatic fracture; Z79.899 Other long term (current) drug therapy
CPT/HCPCS: 10081

== ENCOUNTER 2018-12-23 22:59 | Inpatient (IN) | payer OTHER ==
[~2018-12-23] VITALS: Ht 177.8 cm; Wt 83.0 kg
[~2018-12-23 22:59] MED LIST changes: +COZAAR 25 MG TA25 M1 PO; +IMDUR 60 MG TAB60 M1 PO; +[UNRECOGNIZED DRUG - REMARK] PO; +[UNRECOGNIZED DRUG - REMARK] PO
[2018-12-23 23:07] VITALS: BP 172/112
[2018-12-24 00:48] VITALS: BP 175/112
[2018-12-24] MEDS ORDERED: PLAVIX 75 MG TA75 M1 PO (02:31)
[2018-12-24 04:45] VITALS: BP 164/99
[2018-12-24 06:06] LABS: HEMATOCRIT 39.3 % (42.0-52.0); HEMOGLOBIN 13.3 gm/dL (14.0-18.0); MCH 29.5 pg (26.0-34.0); MCHC 33.8 g/dL (28.0-37.0); MCV 87.2 fL (80.0-100.0); RBC 4.51 mil/uL (4.50-6.00); RDW 15.2 % (10.5-14.5); WBC 8.2 thou/uL (4.0-11.0)
[2018-12-24 06:24] LABS: ANION GAP 10 mmol/L (7-16); BUN 18 mg/dL (7-18); CALCIUM 8.5 mg/dL (8.5-10.1); CHLORIDE 106 mmol/L (98-107); CO2 26 mmol/L (21-32); CREATININE 1.1 mg/dL (0.7-1.3); GLUCOSE 99 mg/dL (74-106); POTASSIUM 3.7 mmol/L (3.5-5.1); SODIUM 142 mmol/L (136-145); TROPONIN-I <0.06 ng/mL (<0.06)
[2018-12-24 06:38] LABS: CHOLESTEROL 202 mg/dL (<200); HDL CHOLESTEROL 38 mg/dL (>40); LDL CHOLESTEROL 118 mg/dL (<100); TC:HDL 5.3 Ratio (Not establshd); TRIGLYCERIDE 234 mg/dL (<150); VLDL 47 mg/dL (<40)
[2018-12-24 07:27] VITALS: BP 165/94
--- NOTE | 2018-12-24 07:43 | NUR ---
ASSESSMENTS CHARTED. MEDS CHARTED. PATIENT ARRIVED FROM [facility] AROUND 22:30. PATIENT WAS SETTLED INTO ROOM, ADMITTED INTO SYSTEM. ORDERS RECEIVED. NEW IV STARTED IN LEFT FOREARM. NPO SINCE MIDNIGHT EXCEPT FOR SIPS OF WATER. BLOOD PRESSURE HIGH DURING SHIFT. NITRO HAS NOT RELIEVED CHEST PAIN AND PRESSURE WELL. C/O INCREASED PRESSURE WITH DEEP BREATHS. CARDIOLOGY CONSULT CALLED IN. FALL PRECAUTIONS IN PLACE.
[2018-12-24 11:14] VITALS: BP 143/82
[2018-12-24 16:44] VITALS: BP 137/82
--- NOTE | 2018-12-24 18:40 | NUR ---
PATIENT CONT TO REST IN ROOM AT THIS TIME. HE DID COMPLAIN OF PAIN EARLIER AND PRN PAIN MEDS ADMININSTERED AND IT WAS EFFECTIVE. NO OTHER COMPLAINTS. HE IS CURRENTLY NPO. DR SHIPMAN TO SEE IF HE CAN BE OFF NPO STATUS. HE WAS WANTS TO DRINK SOME WATER. WILL CONT WITH PLAN OF CARE.
[2018-12-24 19:23] VITALS: BP 125/75
[2018-12-25 04:03] VITALS: BP 136/65
[2018-12-25 07:40] VITALS: BP 151/92
--- NOTE | 2018-12-25 08:38 | NUR ---
ASSESSMENTS CHARTED, MEDS GIVEN. PATIENT RESTING IN BED DURING SHIFT. UP AT RAMYA IN ROOM. HAD BOWEL MOVEMENT. DENIED PAIN OTHER THAN HEADACHE. TESTS PERFORMED DURING DAY WERE NEGATIVE. UNCLEAR TO NEXT COURSE OF ACTION. FALL PRECAUTIONS IN PLACE.
[2018-12-25 13:10] VITALS: BP 139/81
[2018-12-25 15:20] VITALS: BP 113/52
[2018-12-25] MEDS ORDERED: METOPROLOL SUCC50 MG PO (16:01)
[2018-12-25] MEDS ORDERED: FELODIPINE 5 MG5 M1 PO (16:02)
--- NOTE | 2018-12-25 16:40 | NUR ---
met with patient who registered physical therapist independent with [facility]. 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 His employment aware he is in hospital. he reports his manager inpatient took him to ER. Patient reports supportive family. he has health insurance for prescription coverage. patient anticipates no needs at ms.
--- NOTE | 2018-12-25 18:31 | NUR ---
ASSUMED CARE PT AT SHIFT CHANGE. ASSESSMENTS CHARTED. MEDS ADMINISTERERD PER ORDERS AND PRN. PT ALERT AND ORIENTED, VSS, C/O CHEST PAIN, LEG PAIN; MANAGED WITH IV AND PO MEDS. PT WALKED AROUND UNIT THIS SHIFT TOLERATING WELL. SB-SR ON MONITOR. O2 SATS WNL ON ROOM AIR. IN NO APPARENT DISTRESS. PT SEEN BY CARDIOLOGY THIS EVENING, WANTS PT TO WALK MORE AND INCREASE ACTIVITY. PT DENIES CONCERNS/NEEDS AT THIS TIME. WILL CONT TO MONITOR AND FOLLOW POC.
[2018-12-25 19:54] VITALS: BP 120/52
--- NOTE | 2018-12-26 03:14 | NUR ---
ASSUMED PT CARE AT 1900. PT A/OX4, VITAL SIGNS STABLE, ASSESSMENT CHARTED. PT COMPLAINED OF CHEST PAIN, MORPHINE GIVEN IN ADDITION TO OXYGEN. PT ALSO COMPLAINED OF NAUSEA, ZOFRAN GIVEN WHICH SEEMED TO HELP FOR A LITTLE WHILE. PT COMPLAINED OF HEADACHE, TYLENOL GIVEN WHICH SEEMED TO HELP. PT OTHERWISE RESTED WELLL THROUGH THE NIGHT. NO ACUTE CHANGES, PROGRESSING TOWARD PLAN OF CARE, WILL CONTINUE TO MONITOR.
[2018-12-26 04:45] VITALS: BP 136/69
[2018-12-26] MEDS ORDERED: CYCLOBENZAPRINE5 MG PO (08:01)
[2018-12-26] MEDS ORDERED: BENICAR40 MG PO (08:14)
--- NOTE | 2018-12-26 09:06 | NUR ---
OK TO GIVE BB THIS AM PER SPEED READING TEACHER BRIT.
[2018-12-26 10:01] VITALS: BP 157/82
--- NOTE | 2018-12-26 10:07 | NUR ---
DC IV AND TELE. PT DISCHARGED TO HOME.
== END 2018-12-26 10:00 | disposition home or self-care (01) | DRG 305 ==
LOC: 2N 22:59
PROVIDERS: Nurse Practitioner Acute Care; ADMIT Internal Medicine
DX: I16.0 Hypertensive urgency (principal); N17.9 Acute kidney failure, unspecified; I25.10 Atherosclerotic heart disease of native coronary artery without angina pectoris; K21.9 Gastro-esophageal reflux disease without esophagitis; G47.33 Obstructive sleep apnea (adult) (pediatric); I08.1 Rheumatic disorders of both mitral and tricuspid valves; E66.9 Obesity, unspecified; I10 Essential (primary) hypertension; E78.5 Hyperlipidemia, unspecified; Z86.718 Personal history of other venous thrombosis and embolism; Z82.49 Family history of ischemic heart disease and other diseases of the circulatory system; Z95.5 Presence of coronary angioplasty implant and graft; Z79.899 Other long term (current) drug therapy; Z88.2 Allergy status to sulfonamides; Z68.26 Body mass index [BMI] 26.0-26.9, adult
CPT/HCPCS: 10081

== ENCOUNTER → 2019-10-10 | Outpatient (CLI) | payer OTHER ==
[~2019-10-10] MED LIST changes: +ATORVASTATIN CA80 MG PO; +BENICAR40 MG PO; +CARVEDILOL12.5 MG PO; +CYCLOBENZAPRINE5 MG PO; +FELODIPINE 5 MG5 M1 PO; +LOPRESSOR50 MG PO; +PLAVIX 75 MG TA75 M1 PO
== END ==
LOC: SJCVCIMAG 08:36
PROVIDERS: ATTEND Internal Medicine
DX: R10.31 Right lower quadrant pain (principal); R19.00 Intra-abdominal and pelvic swelling, mass and lump, unspecified site; I25.10 Atherosclerotic heart disease of native coronary artery without angina pectoris; I10 Essential (primary) hypertension; Z79.899 Other long term (current) drug therapy

== ENCOUNTER 2019-10-11 04:56 | Emergency (ER) | payer OTHER ==
[~2019-10-11] VITALS: Ht 177.8 cm; Wt 147.4 kg
[~2019-10-11 04:56] MED LIST changes: -ATORVASTATIN CA80 MG PO; -CARVEDILOL12.5 MG PO; -LOPRESSOR50 MG PO
[2019-10-11] MEDS ORDERED: LOPRESSOR50 MG PO (05:21)
[2019-10-11] MEDS ORDERED: ATORVASTATIN CA80 MG PO (05:22)
[2019-10-11] MEDS ORDERED: CARVEDILOL12.5 MG PO (05:22)
[2019-10-11 05:23] LABS: ABSOLUTE NEUTROPHILS 8.5 thou/uL (1.4-8.2); BASOPHILS 0.4 % (0.0-2.0); EOSINOPHILS 1.9 % (0.0-3.0); HEMATOCRIT 35.6 % (42.0-52.0); LYMPHOCYTES 15.1 % (24.0-44.0); MCH 29.7 pg (26.0-34.0); MCHC 33.6 g/dL (28.0-37.0); MCV 88.4 fL (80.0-100.0); MONOCYTES 8.2 % (1.0-8.0); PLATELET COUNT 353 thou/uL (150-400); POLYS 74.4 % (36.0-66.0); RBC 4.02 mil/uL (4.50-6.00); RDW 14.6 % (10.5-14.5); WBC 11.4 thou/uL (4.0-11.0)
[2019-10-11 05:35] LABS: ANION GAP 10 mmol/L (7-16); BUN 28 mg/dL (7-18); CALCIUM 8.6 mg/dL (8.5-10.1); CHLORIDE 98 mmol/L (98-107); CO2 26 mmol/L (21-32); CREATININE 1.8 mg/dL (0.7-1.3); GLUCOSE 104 mg/dL (74-106); POTASSIUM 3.5 mmol/L (3.5-5.1); SODIUM 134 mmol/L (136-145)
[2019-10-11 05:45] LABS: ALBUMIN 3.7 g/dL (3.4-5.0); LIPASE 425 U/L (73-393); SGOT 18 U/L (15-37); SGPT 19 U/L (30-65); TOTAL BILIRUBIN 0.9 mg/dL (0.2-1.0); TROPONIN-I <0.06 ng/mL (<0.06)
--- NOTE | 2019-10-11 07:51 | EKG ---
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1965 Requested By: Asad Briggs Order Number: [id number] MD: Gal Nelson Measurements Intervals [place] Rate: 70 P: 33 MT: 173 QRS: -9 QRSD: 108 T: 57 QT: 441 QTc: 476 Interpretive Statements Sinus rhythm Borderline prolonged QT interval Baseline wander in lead(s) V2 Compared to ECG 11/21/2018 07:33:08 No significant changes Electronically Signed On 10-11-2019 7:51:16 CDT by Gal Nelson [email or web address] <ELECTRONICALLY SIGNED> By: Gal Nelson MD, [facility] 10/11/19 0751 [id number] Gal Nelson MD, [facility] /EPI
[2019-10-11 07:58] VITALS: BP 163/81
== END 2019-10-11 08:00 | disposition home or self-care (01) ==
LOC: ER 04:56
PROVIDERS: Emergency Medicine
DX: R55 Syncope and collapse (principal); R07.9 Chest pain, unspecified; M16.12 Unilateral primary osteoarthritis, left hip; E78.5 Hyperlipidemia, unspecified; I25.10 Atherosclerotic heart disease of native coronary artery without angina pectoris; Z79.899 Other long term (current) drug therapy; Z79.82 Long term (current) use of aspirin; Z88.0 Allergy status to penicillin; Z88.2 Allergy status to sulfonamides; Z98.61 Coronary angioplasty status